=== PATIENT | male | born 1945 | race Caucasian/White ===

== ENCOUNTER 2020-09-27 00:02 | Inpatient (IN) ==
[2020-09-27] MEDS ORDERED: hydrALAZINE 20 MG/ML VIAL IV PRN ×3 (00:31→09:03)
--- NOTE | 2020-09-27 00:35 | Internal Med History&Physical ---
HPI History of Present Illness Patient information: Note initiated : 09/27/20 at 12:34 am Service Date, if different from initiated Date: [] Patient: Devin Barbour a 75 y/o M admitted on for AMS. Chief Complaint: [suspected bacterial/viral meningitis] History of present illness: Mr. Barbour is a 75 year old M history of subdural hemorrhage and meningitis, found by family to have altered mental status, confusions, and agitations earlier previous evening. He was found to be mumbling in incomprehensible words. He was just being brought to [facility] emergency room, where he was found to have a fever of 103. CT of the head without contrast was performed and no signs of acute stroke or any other acute intracranial pathologies were found. Labs including CBC were largely unremarkable with absence of leukocytosis. Urine drug screen negative. Given clinical presentations and prior history of meningitis, and recurrent episodes of bacterial versus viral meningitis were suspected. Lumbar puncture was attempted but failed due to the fact that patient was very combative. Ativan and Haldol were given and without much success. Patient finally was being calmed down after ketamine being given. Admission request due to staffing iss ues. Review of Systems ROS unobtainable: due to mental status PFSH PFSH All Active Problems (Updated 09/27/20 @ 00:41 by Rashad Min MD) Delirium (Acute) Meningitis (Acute) Acute bronchitis (Acute) Left shoulder pain (Acute) Subdural hematoma (Acute) Prediabetes (Chronic 05/11/14) Sleep apnea, obstructive (Chronic 05/11/14) Hypertension, essential (Chronic) Hyperlipidemia (Chronic 05/11/14) Tubular adenoma of colon (Chronic 05/14/15) Irregular heart rhythm (Chronic) Macular degeneration (Chronic) Medical History Hyperlipidemia (05/11/14) ldl, non hdl improved, on red yesat rice, continue to same. Hypertension, essential bp elevated today, low salt diet reinforced, reassess in 3 months Irregular heart rhythm asymptomatic, picked up by BP machine intermittently, get holter to r/o paroxysmal Afib. Macular degeneration Prediabetes (05/11/14) a1c is 5.8, doing well, continue to monitor annually Sleep apnea, obstructive (05/11/14) Tubular adenoma of colon (05/14/15) 05/14/2015-Jarad Vasovagal syncope Surgical History History of colonoscopy (05/14/15) 05/14/15- Dr Abraham-Parent - [place], TA History of knee surgery 1997 History of shoulder surgery 2006 Family History Father Dementia Mother Essential hypertension Unknown Carcinoma in situ of skin Grandfather Pulmonary tuberculosis Social History marital status: alcohol intake frequency: holiday/special occasion only substance use type: does not use MEDS/ALLERGIES Home Medications and Allergies Home Medications Medication Instructions Recorded Confirmed Type vitamins A,C,F-yegm-jionkz 14,320 cap PO 12/08/16 09/21/20 History unit-226 mg-200 unit capsule cholecalciferol (vitamin D3) 50 50 mcg PO QDAY 09/13/20 09/21/20 History mcg (2,000 unit) capsule rosuvastatin 10 mg tablet 10 mg PO QDAY 09/13/20 09/21/20 History vitamin B complex 1 tab PO QDAY 09/13/20 09/21/20 History Allergies Allergy/AdvReac Type Severity Reaction Status Date / Time meperidine [From Demerol] Allergy Unknown Fainting Verified 09/21/20 09:48 EXAM Constitutional General appearance: cooperative and no acute distress Head Head exam: Present atraumatic and normocephalic Eye Eye exam: Present EOMI and PERRL ENT ENT exam: Present mucous membranes moist, normal exam and normal external ear exam Neck Neck exam: Present normal inspection; Absent lymphadenopathy, tenderness and t hyromegaly Respiratory Respiratory exam: Absent accessory muscle use, respiratory distress and wheezes Cardiovascular Cardiovascular exam: Present normal rate and rhythm; Absent JVD GI/Abdominal GI/Abdominal exam: Present normal bowel sounds and soft; Absent organomegaly and tenderness Rectal Rectal exam: Present deferred Extremities Exam Extremities exam: Present full ROM, normal capillary refill and normal inspection; Absent tenderness Neurological Exam Neurological exam: Present alert and CN II-XII intact; Absent motor sensory deficit Additional comments: Orientation is not assessed due to clinical situations. Psychiatric Psychiatric exam: Present normal affect and normal mood; Absent anxious and depressed Skin Skin exam: Present dry and intact A/P Assessment and plan (1) Meningitis: Status: Acute (2) Delirium: Status: Acute Narrative A/P Narrative: 1. Delirium: DDx: Bacterial meningitis vs aseptic meningitis vs acute stroke Admit to inpatient PCU Serial lactic acid, ESR, CRP, procalcitonin Blood culture X2 Consider re-attempt Lumbar puncture when clinically appropriate, but do not delay antibiotics therapy Was being given Vancomycin, Rocephin, Dexamethasone, and acyclovir in outside hospital ER Will add a dose of Ampicillin IV NOW. Will continue empiric Vancomycin, Rocephin, Dexamethasone, and acyclovir in addition to Ampicillin cbc w/ auto diff in morning to trend WBC NS@100cc/hr Tylenol PRN fever Ativan PRN anxiety Haldol PRN agitation If Ativan and/or Haldol not enough to calm patient down, will initiate Precedex drip with goal RASS between 0 and -2 MRI brain w/o contrast in the morning to rule out acute ischemic stroke Physical therapy evaluation and treatment Occupational therapy evaluation and treatment GI ppx: not currently indicated DVT ppx: SCDs Code status: Full Prognosis: extremely guarded Disposition: inpatient PCU Critical Care Time: 45min Time Spent With Patient Time: Total time spent is greater than 50% in coordination of care (as documented) at patient's floor/unit and/or counseling patient: Total time spent with greater than 50% in coordination of care (as documented) at patient's floor/unit and/or counseling patient:: Greater than 35 minutes
[2020-09-27] MEDS ORDERED: ONDANSETRON 4 MG/2 ML VIAL IV PRN ×2 (02:02→09:03)
[2020-09-27] MEDS ORDERED: VANCOMYCIN PER PHARMACY IV ONE (02:02)
[2020-09-27] MEDS ORDERED: 0.9 % SODIUM CHLORIDE 1,000 ML IV SCH (02:02)
[2020-09-27] MEDS ORDERED: ACETAMINOPHEN 325 MG TABLET PO PRN ×2 (02:02→09:03)
[2020-09-27] MEDS ORDERED: DEXMEDETOMIDINE 400 MCG in PREMIX 1 BAG IV SCH ×2 (02:02→03:45)
[2020-09-27] MEDS ORDERED: cefTRIAXone 2 GM in DEXTROSE 5% IN WATER 50 ML IV SCH (02:02)
[2020-09-27] MEDS ORDERED: ACYCLOVIR SODIUM 500 MG VIAL IV SCH (02:02)
[2020-09-27] MEDS ORDERED: HALOPERIDOL LACTATE 5 MG/ML VIAL IM PRN ×3 (02:02→09:03)
[2020-09-27] MEDS ORDERED: LORazepam 2 MG/ML VIAL IV PRN ×2 (02:02→09:03)
[2020-09-27] MEDS ORDERED: LACTULOSE 20 GM/30 ML ORAL.SOL PO PRN ×2 (02:02→09:03)
[2020-09-27] MEDS ORDERED: SENNOSIDES 1 TABLET PO PRN ×2 (02:02→09:03)
[2020-09-27] MEDS ORDERED: DEXMEDETOMIDINE 100 ML IV ONE (02:06)
[2020-09-27] MEDS: AMPICILLIN SODIUM 1 GM in 0.9 % SODIUM CHLORIDE 50 ML IV SCH ×5 (03:06→20:43)
[2020-09-27] MEDS ORDERED: LORazepam 2 MG/ML VIAL ONE (03:11)
[2020-09-27] MEDS ORDERED: 0.9 % SODIUM CHLORIDE 250 ML IV SCH (03:30)
[2020-09-27] MEDS ORDERED: HALOPERIDOL LACTATE 5 MG/ML VIAL ONE (03:30)
[2020-09-27 03:31] LABS: ALT/SGPT 10 U/L (<40); AST/SGOT 21 U/L (<40); Albumin 3.4 gm/dL (3.2-5.2); Albumin/Globulin Ratio 1.3 (1.0-2.3); Alkaline Phosphatase 82 U/L (39-117); Bilirubin,Total 0.4 mg/dL (0.1-1.0); Blood Urea Nitrogen 17 mg/dL (8-23); Carbon Dioxide 22 mmol/L (22-30); Chloride 98 mmol/L (96-108); Globulin 2.7 gm/dL (2.2-3.7); Glomerular Filtration Rate 82; Glucose 139 mg/dL (70-105)
[2020-09-27 03:32] LABS: Basophils # (Auto) 0.02 K/mcL (0.00-0.20); Basophils % (Auto) 0.1 % (0.0-2.0); Eosinophils # (Auto) 0.01 K/mcL (0.00-0.70); Eosinophils % (Auto) 0.1 % (0.0-7.0); Hematocrit 37.4 % (41.0-55.0); Hemoglobin 12.4 g/dL (13.5-16.5); Lymphocytes # (Auto) 0.58 K/mcL (1.50-4.80); Lymphocytes % (Auto) 4.3 % (15.0-49.0); Mean Cell Volume 90.8 fL (80.0-100.0); Mean Corpuscular HGB Conc 33.2 g/dL (31.0-36.0); Mean Platelet Volume 8.9 fL (7.4-10.4); Monocytes # (Auto) 0.18 K/mcL (0.10-0.90); Monocytes % (Auto) 1.3 % (1.0-12.0); Neutrophils % (Auto) 94.2 % (38.0-78.0); Platelet Count 237 K/mcL (140-440); RBC 4.12 M/mcL (4.50-5.90); Red Cell Distribution Width 13.7 % (11.5-14.5); WBC 13.5 K/mcL (4.5-11.0)
[2020-09-27 04:59] LABS: Erythrocyte Sedimentation Rate 14 mm/hr (0-15)
[2020-09-27] MEDS ORDERED: 0.9 % SODIUM CHLORIDE 10 ML SYRINGE IV SCH (06:00)
[2020-09-27] MEDS ORDERED: ACYCLOVIR SODIUM IV SCH (06:00)
[2020-09-27] MEDS ORDERED: SODIUM CHLORIDE 0.9% IV SCH (06:00)
[2020-09-27] MEDS ORDERED: VANCOMYCIN PER PHARMACY IV SCH ×2 (06:15→09:03)
[2020-09-27] MEDS ORDERED: DOCUSATE SODIUM 100 MG CAPSULE PO SCH (09:00)
[2020-09-27] MEDS ORDERED: DEXAMETHASONE 10 MG/ML VIAL IV SCH (09:00)
[2020-09-27] MEDS: DOCUSATE SODIUM 100 MG CAPSULE PO SCH ×2 (09:09→20:39)
[2020-09-27] MEDS: DEXAMETHASONE 10 MG/ML VIAL IV SCH (09:17)
[2020-09-27] MEDS: 0.9 % SODIUM CHLORIDE 250 ML IV SCH ×2 (09:18→22:15)
[2020-09-27] MEDS: 0.9 % SODIUM CHLORIDE 1,000 ML IV SCH ×2 (10:28→20:35)
[2020-09-27] MEDS: DEXMEDETOMIDINE 400 MCG in PREMIX 1 BAG IV SCH (11:20)
--- NOTE | 2020-09-27 12:54 | Magnetic Resonance Report ---
CLINICAL INFORMATION: Acute weakness-possible CVA COMPARISON: head CT 09/27/2020 TECHNIQUE. Sagittal T1 FLAIR, axial T2 FLAIR diffusion ADC images were obtained FINDINGS: The ventricles, sulci, fissures and cisterns are symmetrically enlarged compatible with mild age-related atrophy-no extra-axial fluid collection or mass appreciated. Scattered chronic ischemic foci seen in the cerebral white matter-expected for age. No region of restricted diffusion to suggest acute infarct. No hemorrhage mass effect or edema. Signal void in the intracerebral arteries is normal. IMPRESSION: Mild atrophy and scattered chronic ischemic foci in deep cerebral white matter-expected for age. No evidence of acute CVA or other acute finding Interpreted and Authenticated by: Stuart Guerra 09/27/20
[2020-09-27] MEDS ORDERED: VANCOMYCIN 1,500 MG in 0.9 % SODIUM CHLORIDE 500 ML IV SCH (13:00)
[2020-09-27] MEDS ORDERED: LIDOCAINE 1% 20 ML VIAL SQ ONE (14:00)
[2020-09-27] MEDS: 0.9 % SODIUM CHLORIDE 10 ML SYRINGE IV SCH ×3 (14:06→20:40)
[2020-09-27] MEDS: ACYCLOVIR SODIUM IV SCH ×2 (14:32→21:55)
[2020-09-27] MEDS: SODIUM CHLORIDE 0.9% IV SCH ×2 (14:32→21:55)
--- NOTE | 2020-09-27 15:10 | XRay Report ---
CLINICAL INFORMATION: Obtundation. Evaluate for meningitis COMPARISON: None. TECHNIQUE: The procedure and risks including the possibility of bleeding, infection, CSF leak requiring blood patch were explained to the patient. They understood and wished to proceed. They were administered IV Ativan intravenously prior to and during the procedure while pulse oximetry and blood pressure were monitored by nursing. Please see medication sheet for dose. Total sedation time: 30 minutes Under fluoroscopic guidance, the L2-3 intralaminar space was marked, prepped and locally anesthetized with 1% Lidocaine using a 25 gauge needle. A 22 gauge spinal needle was placed under fluoroscopy through the intralaminar space into the thecal sac. Approximately 10 cc of sanguinous tinged CSF was aspirated and sent to pathology for requested studies. There was no apparent complication. The patient tolerated procedure well. Fluoroscopy time: one minute four seconds. IMPRESSION: Successful fluoroscopic guided lumbar puncture yielding 10 cc of sanguinous tinged CSF. No apparent complications. Interpreted and Authenticated by: Stuart Guerra 09/27/20
[2020-09-27] MEDS: cefTRIAXone 2 GM in DEXTROSE 5% IN WATER 50 ML IV SCH (16:13)
[2020-09-27 16:40] LABS: Appearance,CSF Cloudy; Lymphocytes,CSF 78 % (28-96); Monocytes,CSF 14 % (16-56); Neutrophils,CSF 8 % (0-7); Nucleated Cells,CSF 332 /cumm (0-5); Red Blood Cell,CSF 16729 /cumm (0-1); Total Cell Ct,CSF 100
[2020-09-27 17:16] LABS: Glucose,CSF 82 mg/dL (40-70)
[2020-09-28] MEDS: cefTRIAXone 2 GM in DEXTROSE 5% IN WATER 50 ML IV SCH ×3 (00:58→20:27)
[2020-09-28] MEDS: AMPICILLIN SODIUM 1 GM in 0.9 % SODIUM CHLORIDE 50 ML IV SCH ×3 (01:37→09:00)
[2020-09-28] MEDS: 0.9 % SODIUM CHLORIDE 10 ML SYRINGE IV SCH ×5 (05:15→21:54)
[2020-09-28] MEDS: ACYCLOVIR SODIUM IV SCH ×3 (06:02→21:45)
[2020-09-28] MEDS: SODIUM CHLORIDE 0.9% IV SCH ×3 (06:02→21:45)
[2020-09-28 07:37] LABS: ALT/SGPT 8 U/L (<40); AST/SGOT 17 U/L (<40); Albumin 2.4 gm/dL (3.2-5.2); Albumin/Globulin Ratio 1.1 (1.0-2.3); Alkaline Phosphatase 60 U/L (39-117); Bilirubin,Direct < 0.2 mg/dL (0-0.3); Bilirubin,Total < 0.2 mg/dL (0.1-1.0); Blood Urea Nitrogen 16 mg/dL (8-23); Calcium 7.2 mg/dL (8.6-10.4); Carbon Dioxide 25 mmol/L (22-30); Chloride 107 mmol/L (96-108); Globulin 2.2 gm/dL (2.2-3.7); Glomerular Filtration Rate 97; Glucose 125 mg/dL (70-105); Lactate Dehydrogenase 112 U/L (135-225); Phosphorous 2.4 mg/dL (2.5-4.5); Triglycerides 58 mg/dL (<150); Uric Acid 3.5 mg/dL (2.5-8.0)
[2020-09-28 07:38] LABS: ALT/SGPT 8 U/L (<40); AST/SGOT 17 U/L (<40); Albumin 2.4 gm/dL (3.2-5.2); Albumin/Globulin Ratio 1.1 (1.0-2.3); Alkaline Phosphatase 60 U/L (39-117); Bilirubin,Total < 0.2 mg/dL (0.1-1.0); Blood Urea Nitrogen 15 mg/dL (8-23); Calcium 7.3 mg/dL (8.6-10.4); Carbon Dioxide 24 mmol/L (22-30); Chloride 107 mmol/L (96-108); Globulin 2.2 gm/dL (2.2-3.7); Glomerular Filtration Rate 97; Glucose 123 mg/dL (70-105)
[2020-09-28] MEDS: DEXAMETHASONE 10 MG/ML VIAL IV SCH (08:15)
[2020-09-28] MEDS: DOCUSATE SODIUM 100 MG CAPSULE PO SCH ×2 (08:15→20:29)
[2020-09-28 08:19] LABS: Basophils # (Auto) 0.03 K/mcL (0.00-0.20); Basophils % (Auto) 0.4 % (0.0-2.0); Eosinophils # (Auto) 0.03 K/mcL (0.00-0.70); Eosinophils % (Auto) 0.4 % (0.0-7.0); Hematocrit 33.4 % (41.0-55.0); Lymphocytes # (Auto) 0.97 K/mcL (1.50-4.80); Lymphocytes % (Auto) 11.8 % (15.0-49.0); Mean Cell Volume 89.5 fL (80.0-100.0); Mean Corpuscular HGB Conc 32.9 g/dL (31.0-36.0); Monocytes # (Auto) 0.83 K/mcL (0.10-0.90); Monocytes % (Auto) 10.1 % (1.0-12.0); Neutrophils % (Auto) 77.3 % (38.0-78.0); Platelet Count 232 K/mcL (140-440); RBC 3.73 M/mcL (4.50-5.90); WBC 8.3 K/mcL (4.5-11.0)
[2020-09-28] MEDS ORDERED: DEXMEDETOMIDINE 400 MCG in PREMIX 1 BAG IV PRN (10:15)
[2020-09-28] MEDS: DEXMEDETOMIDINE 400 MCG in PREMIX 1 BAG IV SCH (10:16)
[2020-09-28] MEDS: 0.9 % SODIUM CHLORIDE 250 ML IV SCH (10:16)
--- NOTE | 2020-09-28 12:22 | Internal Med Progress Note ---
SUBJECTIVE Subjective Patient information: Note initiated : 09/28/20 at 12:18 pm Service Date, if different from initiated Date: [] Patient: Devin Barbour 75 y/o M admitted on 09/27/20 for AMS. Chief Complaint: [] Interval history: Mr. Barbour is a 75 year old M history of subdural hemorrhage and meningitis, found by family to have altered mental status, confusions, and agitations earlier previous evening. He was found to be mumbling in incompreh ensible words. He was just being brought to [facility] emergency room, where he was found to have a fever of 103. CT of the head without contrast was performed and no signs of acute stroke or any other acute intracranial pathologies were found. Labs including CBC were largely unremarkab le with absence of leukocytosis. Urine drug screen negative. Given clinical presentations and prior history of meningitis, and recurrent episodes of bacterial versus viral meningitis were suspected. Lumbar puncture was attempted but failed due to the fact that patient was very combative. Ativan and Haldol were given and without much success. Patient finally was being calmed down after ketamine being given. Admission request due to staffing issues. 09/28-patient clinically improved. Lumbar puncture consistent with mononuclear leukocytosis suggestive of aseptic meningitis. Continue acyclovir. DC ampicillin/vancomycin and steroid. Much more lucid alert and ambulating. Transfer to medical floor. Continue contact cautions. No overnight fever chills. Phosphorus 2.4 start replacement. Constitutional Vitals: Vital Signs Temp Pulse Resp BP Pulse Ox 97.5 F 74 17 137/69 99 09/28/20 08:01 09/27/20 15:16 09/28/20 08:01 09/28/20 08:01 09/28/20 08:01 Period Temp Pulse Resp BP Sys/Cassidy Pulse Ox Last 24 Hr 97.1 F-98.2 F 63-77 12-25 103-142/43-99 93-100 Intake and Output 09/27/20 09/28/20 09/28/20 21:59 05:59 13:59 Intake Total 2170 788 682 Output Total 825 600 250 Balance 1345 188 432 Weight 77.201 kg alert oriented Nonlabored breathing No anxiety Ambulating Intake & Output: Intake & Output 05/03/21 05/04/21 05/04/21 21:59 05:59 13:59 Intake Total 2170 788 682 Output Total 825 600 250 Balance 1345 188 432 Weight 77.201 kg Intake: IV 1930 788 682 Sodium Chloride 0.9% 1,000 ml @ 1080 488 432 100 mls/hr IV .Q10H DANIEL Rx#: [id number] Zovirax 770 mg In Sodium 150 150 150 Chloride 0.9% 150 ml @ 150 mls/ hr IV Q8H D[facility]EL Rx#:[id number] Ampicillin 1 gm In Sodium 150 100 50 Chloride 0.9% 50 ml @ 100 mls/ hr IV Q4H DANIEL Rx#:[id number] Precedex 400 Mcg/100 ml 0 Dextrose 400 Mcg In Premix 1 Bag @ 0.2 MCG/KG/HR 3.79 mls/hr IV .Q24H DANIEL Rx#:[id number] Vancomycin 1,500 mg In Sodium 500 Chloride 0.9% 500 ml @ 250 mls/ hr IV Q24H DANIEL Rx#:[id number] Rocephin 2 gm In Dextrose 5% in 50 50 50 Water 50 ml @ 100 mls/hr IV Q12H DANIEL Rx#:[id number] Oral 240 0 Output: Void Amount 825 600 250 Other: Meal Dinner Percent of Meal Consumed 100% Feeding Ability Independent Urine Appearance Clear Urine Color Dark Yellow Urine Odor Normal OBJ DATA Labs CBC & Chem 7: 09/28/20 05:05 09/28/20 05:05 Labs: Abnormal Lab Results 09/28/20 09/28/20 09/28/20 05:05 05:05 05:05 WBC RBC 3.73 L Hgb 11.0 L Hct 33.4 L Neut % (Auto) Lymph % (Auto) 11.8 L Lymph # (Auto) 0.97 L Absolute Neutrophils Anion Gap 6.0 L Creatinine 0.6 L 0.6 L Glucose 125 H 123 H Calcium 7.2 L 7.3 L Phosphorus 2.4 L Lactate Dehydrogenase 112 L Total Protein 4.6 L 4.6 L Albumin 2.4 L 2.4 L CSF RBC CSF Total Nucleated Auto CSF Neutrophils CSF Monocytes CSF Glucose CSF Total Protein 09/27/20 09/27/20 09/27/20 13:15 02:43 02:43 WBC 13.5 H RBC 4.12 L Hgb 12.4 L Hct 37.4 L Neut % (Auto) 94.2 H Lymph % (Auto) 4.3 L Lymph # (Auto) 0.58 L Absolute Neutrophils 12.70 H Anion Gap Creatinine Glucose 139 H Calcium 8.0 L Phosphorus Lactate Dehydrogenase Total Protein Albumin CSF RBC 69229 H CSF Total Nucleated Auto 332 H CSF Neutrophils 8 H CSF Monocytes 14 L CSF Glucose 82 H CSF Total Protein 69.0 H Meds: Medications Acetaminophen (Acetaminophen 325 Mg Tablet) 650 mg PO Q6HP PRN; Protocol PRN Reason: Per Pain Protocol/Fever > 101 Last Admin: 09/27/20 20:40 Dose: 650 mg Documented by: Dexamethasone (Dexamethasone 10 Mg/Ml Vial) 6 mg IV DAILY [facility] Last Admin: 09/28/20 08:15 Dose: 6 mg Documented by: Docusate Sodium (Docusate Sodium 100 Mg Capsule) 100 mg PO BID [facility] Last Admin: 09/28/20 08:15 Dose: 100 mg Documented by: Haloperidol Lactate (Haloperidol Lactate 5 Mg/Ml Vial) 5 mg IM Q6HP PRN PRN Reason: Agitation Hydralazine HCl (Hydralazine 20 Mg/Ml Vial) 10 mg IV Q4-6HP PRN PRN Reason: Hypertension Sodium Chloride (Sodium Chloride 0.9%) 1,000 mls @ 100 mls/hr IV .Q10H [facility] Last Infusion: 09/28/20 10:58 Dose: Infused Documented by: Acyclovir Sodium 770 mg/ (Sodium Chloride) 150 mls @ 150 mls/hr IV Q8H [facility] Last Infusion: 09/28/20 07:03 Dose: Infused Documented by: Ampicillin Sodium 1 gm/ Sodium (Chloride) 50 mls @ 100 mls/hr IV Q4H [facility]; Protocol Last Infusion: 09/28/20 09:48 Dose: Infused Documented by: Ceftriaxone Sodium 2 gm/ (Dextrose) 50 mls @ 100 mls/hr IV Q12H [facility]; Protocol Last Infusion: 09/28/20 10:15 Dose: Infused Documented by: Vancomycin HCl 1,500 mg/ (Sodium Chloride) 500 mls @ 250 mls/hr IV Q24H [facility] Stop: 09/28/20 12:30 Last Infusion: 09/27/20 16:42 Dose: Infused Documented by: Vancomycin HCl 1,500 mg/ (Sodium Chloride) 500 mls @ 250 mls/hr IV Q12H [facility] Last Admin: 09/28/20 10:09 Dose: 250 mls/hr Documented by: Dexmedetomidine HCl 400 mcg/ (Premix) 100 mls @ 3.79 mls/hr IV .Q24H PRN; Protocol PRN Reason: Sedation Lactulose (Lactulose 20 Gm/30 Ml Oral.Tanja) 10 gm PO DAILYP PRN PRN Reason: Constipation Lorazepam (Lorazepam 2 Mg/Ml Vial) 1 mg IV Q2HP PRN PRN Reason: ANXIETY/SEDATION Last Admin: 09/27/20 12:20 Dose: 1 mg Documented by: Ondansetron HCl (Ondansetron 4 Mg/2 Ml Vial) 4 mg IV Q4HP PRN; Protocol PRN Reason: Nausea And Vomiting Senna (Sennosides 1 Tablet) 2 tab PO HSP PRN PRN Reason: Constipation Sodium Chloride (0.9 % Sodium Chloride 10 Ml Syringe) 10 ml IV Q8 [facility] Last Admin: 09/28/20 05:20 Dose: 10 ml Documented by: Vancomycin HCl (Vancomycin Per Pharmacy) 1 order IV [facility] [place]; Protocol A/P Narrative A/P Narrative: * Aseptic meningitis, HSV cultures pending. Continue with acyclovir, de- escalate antibiotics as procalcitonin 0.06 and no evidence of bacterial infection, negative cultures so far * History of HLD continue statin * Prophylaxis SCDs Plan * Transfer to medical floor * De-escalate antibiotics * PT OT nutrition support * Discharge planning Time Spent With Patient Time: Total time spent is greater than 50% in coordination of care (as documented) at patient's floor/unit and/or counseling patient: QUALITY Stroke Symptom Onset Unknown: No VTE Deep Vein Thrombosis/Pulmonary Embolism Present on Admission: No
[2020-09-28] MEDS: 0.9 % SODIUM CHLORIDE 1,000 ML IV SCH ×2 (12:36→14:19)
[2020-09-28] MEDS ORDERED: LACTULOSE 20 GM/30 ML ORAL.SOL PO PRN (12:41)
[2020-09-28] MEDS ORDERED: LIDOCAINE 1% 20 ML VIAL SQ ONE (12:41)
[2020-09-28] MEDS ORDERED: LORazepam 2 MG/ML VIAL IV PRN (12:41)
[2020-09-28] MEDS ORDERED: SENNOSIDES 1 TABLET PO PRN (12:41)
[2020-09-28] MEDS ORDERED: ONDANSETRON 4 MG/2 ML VIAL IV PRN (12:41)
[2020-09-28] MEDS ORDERED: HALOPERIDOL LACTATE 5 MG/ML VIAL IM PRN (12:41)
[2020-09-28] MEDS ORDERED: hydrALAZINE 20 MG/ML VIAL IV PRN (12:41)
[2020-09-28] MEDS ORDERED: NEUTRA PHOS 1 PACKET PO PRN (12:41)
[2020-09-28] MEDS: ACETAMINOPHEN 325 MG TABLET PO PRN (19:44)
[2020-09-28] MEDS: ATORVASTATIN 10 MG TABLET PO SCH (20:29)
[2020-09-28] MEDS: VITAMINS A C E ZINC COPPER PO SCH (20:34)
[2020-09-28] MEDS ORDERED: VANCOMYCIN 1,500 MG in 0.9 % SODIUM CHLORIDE 500 ML IV SCH (22:00)
[2020-09-29] MEDS: ACETAMINOPHEN 325 MG TABLET PO PRN ×2 (03:03→17:23)
[2020-09-29] MEDS: 0.9 % SODIUM CHLORIDE 1,000 ML IV SCH ×3 (03:05→19:32)
[2020-09-29] MEDS: SODIUM CHLORIDE 0.9% IV SCH ×3 (05:31→23:03)
[2020-09-29] MEDS: ACYCLOVIR SODIUM IV SCH ×3 (05:31→23:03)
[2020-09-29] MEDS: 0.9 % SODIUM CHLORIDE 10 ML SYRINGE IV SCH ×3 (05:45→23:03)
--- NOTE | 2020-09-29 09:02 | XRay Report ---
CLINICAL INFORMATION: Bronchitis vs Pneumonia COMPARISON: 11/27/2017 FINDINGS: The heart size, mediastinum and pulmonary vessels are normal. Minor bibasilar airspace disease is more likely atelectasis than developing infiltrate. No effusion. IMPRESSION: Mild bibasilar airspace disease is more likely atelectasis than developing infiltrate. Suggest two-view follow-up one two days Interpreted and Authenticated by: Stuart Guerra 09/29/20
[2020-09-29 10:09] LABS: ALT/SGPT 11 U/L (<40); AST/SGOT 22 U/L (<40); Albumin/Globulin Ratio 1.3 (1.0-2.3); Alkaline Phosphatase 69 U/L (39-117); Bilirubin,Direct < 0.2 mg/dL (0-0.3); Bilirubin,Total 0.3 mg/dL (0.1-1.0); Blood Urea Nitrogen 10 mg/dL (8-23); Carbon Dioxide 27 mmol/L (22-30); Chloride 102 mmol/L (96-108); Globulin 2.4 gm/dL (2.2-3.7); Glomerular Filtration Rate 86; Glucose 133 mg/dL (70-105); Lactate Dehydrogenase 126 U/L (135-225); Phosphorous 2.5 mg/dL (2.5-4.5); Triglycerides 120 mg/dL (<150)
[2020-09-29] MEDS: cefTRIAXone 2 GM in DEXTROSE 5% IN WATER 50 ML IV SCH ×2 (10:14→21:50)
[2020-09-29] MEDS: DOCUSATE SODIUM 100 MG CAPSULE PO SCH ×2 (10:15→21:58)
[2020-09-29] MEDS: VITAMINS A C E ZINC COPPER PO SCH ×2 (10:15→21:58)
--- NOTE | 2020-09-29 12:54 | Internal Med Progress Note ---
SUBJECTIVE Subjective Patient information: Note initiated : 09/29/20 at 12:48 pm Service Date, if different from initiated Date: [] Patient: Devin Barbour 75 y/o M admitted on 09/27/20 for AMS. Chief Complaint: [] Interval history: Mr. Barbour is a 75 year old M history of subdural hemorrhage and meningitis, found by family to have altered mental status, confusions, and agitations earlier previous evening. He was found to be mumbling in incompreh ensible words. He was just being brought to [facility] emergency room, where he was found to have a fever of 103. CT of the head without contrast was performed and no signs of acute stroke or any other acute intracranial pathologies were found. Labs including CBC were largely unremarkab le with absence of leukocytosis. Urine drug screen negative. Given clinical presentations and prior history of meningitis, and recurrent episodes of bacterial versus viral meningitis were suspected. Lumbar puncture was attempted but failed due to the fact that patient was very combative. Ativan and Haldol were given and without much success. Patient finally was being calmed down after ketamine being given. Admission request due to staffing issues. 09/28-patient clinically improved. Lumbar puncture consistent with mononuclear leukocytosis suggestive of aseptic meningitis. Continue acyclovir. DC ampicillin/vancomycin and steroid. Much more lucid alert and ambulating. Transfer to medical floor. Continue contact cautions. No overnight fever chills. Phosphorus 2.4 start replacement. 09/29-patient febrile last night. Intermittently confused but this morning a lot better. Await CSF test including encephalitis panel. Stable biochemical profile. Continue acyclovir. Constitutional Vitals: Vital Signs Temp Pulse Resp BP Pulse Ox 98.2 F 74 20 129/70 95 09/29/20 07:00 09/29/20 07:00 09/29/20 07:00 09/29/20 07:00 09/29/20 07:00 Period Temp Pulse Resp BP Sys/Cassidy Pulse Ox Last 24 Hr 96.7 F-101.2 F 73-81 18-20 129-167/62-89 95-100 Intake and Output 09/28/20 09/29/20 09/29/20 21:59 05:59 13:59 Intake Total 943 952 390 Output Total 50 Balance 943 902 390 Weight 78.97 kg Alert oriented, ambulating Non labored breathing No anxiety Intake & Output: Intake & Output 09/28/20 09/29/20 09/29/20 21:59 05:59 13:59 Intake Total 943 952 390 Output Total 50 Balance 943 902 390 Weight 78.97 kg Intake: IV 943 652 150 Sodium Chloride 0.9% 1,000 ml @ 743 502 0 100 mls/hr IV .Q10H [facility] Rx#: [id number] Zovirax 770 mg In Sodium 150 150 150 Chloride 0.9% 150 ml @ 150 mls/ hr IV Q8H [facility] Rx#:[id number] Rocephin 2 gm In Dextrose 5% in 50 Water 50 ml @ 100 mls/hr IV Q12H [facility] Rx#:[id number] Oral 300 240 Output: Void Amount 50 Other: Meal Breakfast Percent of Meal Consumed 100% Feeding Ability Independent Urine Appearance Clear Clear Urine Color Bright Yellow Bright Yellow Stool Size Moderate Moderate Stool Color Brown Brown Stool Consistency Formed Soft # Voids 1 1 2 # Bowel Movements 1 OBJ DATA Labs CBC & Chem 7: 09/29/20 13:30 09/29/20 09:13 Labs: Abnormal Lab Results 09/29/20 09/28/20 09/28/20 09:13 05:05 05:05 WBC RBC Hgb Hct Neut % (Auto) Lymph % (Auto) Lymph # (Auto) Absolute Neutrophils Anion Gap 6.0 L Creatinine 0.6 L 0.6 L Glucose 133 H 125 H 123 H Calcium 8.0 L 7.2 L 7.3 L Phosphorus 2.4 L Lactate Dehydrogenase 126 L 112 L Total Protein 5.4 L 4.6 L 4.6 L Albumin 3.0 L 2.4 L 2.4 L CSF RBC CSF Total Nucleated Auto CSF Neutrophils CSF Monocytes CSF Glucose CSF Total Protein 09/28/20 09/27/20 09/27/20 05:05 13:15 02:43 WBC RBC 3.73 L Hgb 11.0 L Hct 33.4 L Neut % (Auto) Lymph % (Auto) 11.8 L Lymph # (Auto) 0.97 L Absolute Neutrophils Anion Gap Creatinine Glucose 139 H Calcium 8.0 L Phosphorus Lactate Dehydrogenase Total Protein Albumin CSF RBC 31329 H CSF Total Nucleated Auto 332 H CSF Neutrophils 8 H CSF Monocytes 14 L CSF Glucose 82 H CSF Total Protein 69.0 H 09/27/20 02:43 WBC 13.5 H RBC 4.12 L Hgb 12.4 L Hct 37.4 L Neut % (Auto) 94.2 H Lymph % (Auto) 4.3 L Lymph # (Auto) 0.58 L Absolute Neutrophils 12.70 H Anion Gap Creatinine Glucose Calcium Phosphorus Lactate Dehydrogenase Total Protein Albumin CSF RBC CSF Total Nucleated Auto CSF Neutrophils CSF Monocytes CSF Glucose CSF Total Protein Meds: Medications Acetaminophen (Acetaminophen 325 Mg Tablet) 650 mg PO Q6HP PRN; Protocol PRN Reason: Per Pain Protocol/Fever > 101 Last Admin: 09/29/20 03:03 Dose: 650 mg Documented by: Atorvastatin Calcium (Atorvastatin 10 Mg Tablet) 10 mg PO HS [facility] Last Admin: 09/28/20 20:29 Dose: 10 mg Documented by: Docusate Sodium (Docusate Sodium 100 Mg Capsule) 100 mg PO BID [facility] Last Admin: 09/29/20 10:15 Dose: Not Given Documented by: Haloperidol Lactate (Haloperidol Lactate 5 Mg/Ml Vial) 5 mg IM Q6HP PRN PRN Reason: Agitation Hydralazine HCl (Hydralazine 20 Mg/Ml Vial) 10 mg IV Q4-6HP PRN PRN Reason: Hypertension Acyclovir Sodium 770 mg/ (Sodium Chloride) 150 mls @ 150 mls/hr IV Q8H [facility] Last Infusion: 09/29/20 06:35 Dose: Infused Documented by: Ceftriaxone Sodium 2 gm/ (Dextrose) 50 mls @ 100 mls/hr IV Q12H [facility]; Protocol Last Admin: 09/29/20 10:14 Dose: 100 mls/hr Documented by: Sodium Chloride (Sodium Chloride 0.9%) 1,000 mls @ 100 mls/hr IV .Q10H [facility] Last Infusion: 09/29/20 06:35 Dose: 100 mls/hr Documented by: Lactulose (Lactulose 20 Gm/30 Ml Oral.Tanja) 10 gm PO DAILYP PRN PRN Reason: Constipation Lorazepam (Lorazepam 2 Mg/Ml Vial) 1 mg IV Q2HP PRN PRN Reason: ANXIETY/SEDATION Ondansetron HCl (Ondansetron 4 Mg/2 Ml Vial) 4 mg IV Q4HP PRN; Protocol PRN Reason: Nausea And Vomiting Vitamins A,C,E-Zinc -Copper [ Preservision Areds] Cap 1 dose PO BID [facility] Last Admin: 09/29/20 10:15 Dose: Not Given Documented by: Potassium/Phosphorus/Sodium (Neutra Phos 1 Packet) 2 packet PO DAILY PRN PRN Reason: PHOS <2.5 Senna (Sennosides 1 Tablet) 2 tab PO HSP PRN PRN Reason: Constipation Sodium Chloride (0.9 % Sodium Chloride 10 Ml Syringe) 10 ml IV Q8 [facility] Last Admin: 09/29/20 05:45 Dose: 10 ml Documented by: A/P Narrative A/P Narrative: * Aseptic meningitis with 92% mononuclear cells on CSF, increased protein, HSV cultures pending. continue acyclovir/Rocephin * History of HLD continue statin * Prophylaxis SCDs Plan * Transfer to medical floor * Further de-escalate antibiotics based on CSF cultures * Continue acyclovir * PT OT nutrition support * Discharge planning Time Spent With Patient Time: Total time spent is greater than 50% in coordination of care (as documented) at patient's floor/unit and/or counseling patient: QUALITY Stroke Symptom Onset Unknown: No VTE Deep Vein Thrombosis/Pulmonary Embolism Present on Admission: No
[2020-09-29 14:08] LABS: Basophils # (Auto) 0.02 K/mcL (0.00-0.20); Basophils % (Auto) 0.3 % (0.0-2.0); Eosinophils # (Auto) 0.03 K/mcL (0.00-0.70); Eosinophils % (Auto) 0.4 % (0.0-7.0); Hemoglobin 11.9 g/dL (13.5-16.5); Lymphocytes # (Auto) 1.36 K/mcL (1.50-4.80); Lymphocytes % (Auto) 18.2 % (15.0-49.0); Mean Cell Volume 95.1 fL (80.0-100.0); Mean Corpuscular HGB Conc 36.1 g/dL (31.0-36.0); Monocytes # (Auto) 0.66 K/mcL (0.10-0.90); Monocytes % (Auto) 8.8 % (1.0-12.0); Neutrophils % (Auto) 72.3 % (38.0-78.0); Platelet Count 213 K/mcL (140-440); RBC 3.47 M/mcL (4.50-5.90); Red Cell Distribution Width 16.9 % (11.5-14.5); WBC 7.5 K/mcL (4.5-11.0)
[2020-09-29] MEDS: ATORVASTATIN 10 MG TABLET PO SCH (21:51)
[2020-09-30] MEDS: 0.9 % SODIUM CHLORIDE 1,000 ML IV SCH ×2 (04:20→17:58)
[2020-09-30] MEDS: ACYCLOVIR SODIUM IV SCH ×3 (05:54→21:32)
[2020-09-30] MEDS: SODIUM CHLORIDE 0.9% IV SCH ×3 (05:54→21:32)
[2020-09-30] MEDS: 0.9 % SODIUM CHLORIDE 10 ML SYRINGE IV SCH ×3 (05:55→21:33)
[2020-09-30 08:17] LABS: Basophils # (Auto) 0.04 K/mcL (0.00-0.20); Basophils % (Auto) 0.5 % (0.0-2.0); Eosinophils # (Auto) 0.06 K/mcL (0.00-0.70); Eosinophils % (Auto) 0.8 % (0.0-7.0); Hematocrit 35.8 % (41.0-55.0); Hemoglobin 11.8 g/dL (13.5-16.5); Lymphocytes # (Auto) 0.91 K/mcL (1.50-4.80); Lymphocytes % (Auto) 12.4 % (15.0-49.0); Mean Cell Volume 89.7 fL (80.0-100.0); Mean Platelet Volume 9.3 fL (7.4-10.4); Monocytes # (Auto) 0.67 K/mcL (0.10-0.90); Monocytes % (Auto) 9.1 % (1.0-12.0); Neutrophils % (Auto) 77.2 % (38.0-78.0); Platelet Count 222 K/mcL (140-440); RBC 3.99 M/mcL (4.50-5.90); Red Cell Distribution Width 14.2 % (11.5-14.5); WBC 7.3 K/mcL (4.5-11.0)
[2020-09-30] MEDS: cefTRIAXone 2 GM in DEXTROSE 5% IN WATER 50 ML IV SCH (08:29)
[2020-09-30] MEDS: DOCUSATE SODIUM 100 MG CAPSULE PO SCH ×2 (08:29→20:29)
[2020-09-30] MEDS: VITAMINS A C E ZINC COPPER PO SCH ×2 (08:29→20:30)
[2020-09-30 09:41] LABS: ALT/SGPT 11 U/L (<40); AST/SGOT 24 U/L (<40); Albumin 2.8 gm/dL (3.2-5.2); Albumin/Globulin Ratio 1.1 (1.0-2.3); Alkaline Phosphatase 70 U/L (39-117); Bilirubin,Direct < 0.2 mg/dL (0-0.3); Bilirubin,Total 0.4 mg/dL (0.1-1.0); Blood Urea Nitrogen 8 mg/dL (8-23); Calcium 8.1 mg/dL (8.6-10.4); Carbon Dioxide 25 mmol/L (22-30); Chloride 100 mmol/L (96-108); Globulin 2.5 gm/dL (2.2-3.7); Glomerular Filtration Rate 91; Glucose 95 mg/dL (70-105); Lactate Dehydrogenase 202 U/L (135-225); Phosphorous 2.7 mg/dL (2.5-4.5); Triglycerides 89 mg/dL (<150); Uric Acid 2.7 mg/dL (2.5-8.0)
--- NOTE | 2020-09-30 13:18 | Internal Med Progress Note ---
SUBJECTIVE Subjective Patient information: Note initiated : 09/30/20 at 1:16 pm Service Date, if different from initiated Date: [] Patient: Devin Barbour 75 y/o M admitted on 09/27/20 for AMS. Chief Complaint: [] Interval history: Mr. Barbour is a 75 year old M history of subdural hemorrhage and meningitis, found by family to have altered mental status, confusions, and agitations earlier previous evening. He was found to be mumbling in incomprehe nsible words. He was just being brought to [facility] emergency room, where he was found to have a fever of 103. CT of the head without contrast was performed and no signs of acute stroke or any other acute intracranial pathologies were found. Labs including CBC were largely unremarkable with absence of leukocytosis. Urine drug screen negative. Given clinical presentations and prior history of meningitis, and recurrent episodes of bacterial versus viral meningitis were suspected. Lumbar puncture was attempted but failed due to the fact that patient was very combative. Ativan and Haldol were given and without much success. Patient finally was being calmed down after ketamine being given. Admission request due to staffing issues. 09/28-patient clinically improved. Lumbar puncture consistent with mononuclear leukocytosis suggestive of aseptic meningitis. Continue acyclovir. DC ampicillin/vancomycin and steroid. Much more lucid alert and ambulating. Transfer to medical floor. Continue contact cautions. No overnight fever chills. Phosphorus 2.4 start replacement. 09/29-patient febrile last night. Intermittently confused but this morning a lot better. Await CSF test including encephalitis panel. Stable biochemical profile. Continue acyclovir. -09/30 patient doing a lot better. Lucid alert and ambulating. Encephalitis panel pending. Continue acyclovir. DC Rocephin as no fever or signs of bacterial meningitis. Low procalcitonin. Stable white count, renal function stable creatinine 0.7, no overnight fever chills or concerns per staff. Tolerating diet and therapies Constitutional Vitals: Vital Signs Temp Pulse Resp BP Pulse Ox 99.1 F H 65 18 152/64 98 09/30/20 11:58 09/30/20 11:58 09/30/20 11:58 09/30/20 11:58 09/30/20 11:58 Period Temp Pulse Resp BP Sys/Cassidy Pulse Ox Last 24 Hr 98.7 F-101.3 F 63-78 16-18 119-160/61-70 96-98 Intake and Output 09/29/20 09/30/20 09/30/20 21:59 05:59 13:59 Intake Total 942 1320 150 Output Total 750 1100 1050 Balance 192 220 -900 Weight 79.379 kg alert oriented Nonlabored breathing Ambulating Nondistended abdomen Intake & Output: Intake & Output 09/29/20 09/30/20 09/30/20 21:59 05:59 13:59 Intake Total 942 1320 150 Output Total 750 1100 1050 Balance 192 220 -900 Weight 79.379 kg Intake: IV 942 1200 150 Sodium Chloride 0.9% 1,000 ml @ 742 1000 100 mls/hr IV .Q10H DANIEL Rx#: [id number] Zovirax 770 mg In Sodium 150 150 150 Chloride 0.9% 150 ml @ 150 mls/ hr IV Q8H DANIEL Rx#:[id number] Rocephin 2 gm In Dextrose 5% in 50 50 Water 50 ml @ 100 mls/hr IV Q12H DANIEL Rx#:[id number] Oral 120 Output: Void Amount 750 1100 1050 Other: Urine Appearance Clear Clear Urine Color Pale Pale Urine Odor Normal # Voids 1 OBJ DATA Labs CBC & Chem 7: 09/30/20 05:27 09/30/20 05:27 Labs: Abnormal Lab Results 09/30/20 09/30/20 09/29/20 05:27 05:27 13:30 RBC 3.99 L 3.47 L Hgb 11.8 L 11.9 L Hct 35.8 L 33.0 L MCH 34.3 H MCHC 36.1 H RDW 16.9 H Lymph % (Auto) 12.4 L Lymph # (Auto) 0.91 L 1.36 L Anion Gap Creatinine Glucose Calcium 8.1 L Phosphorus Lactate Dehydrogenase Total Protein 5.3 L Albumin 2.8 L CSF RBC CSF Total Nucleated Auto CSF Neutrophils CSF Monocytes CSF Glucose CSF Total Protein 09/29/20 09/28/20 09/28/20 09:13 05:05 05:05 RBC Hgb Hct MCH MCHC RDW Lymph % (Auto) Lymph # (Auto) Anion Gap 6.0 L Creatinine 0.6 L 0.6 L Glucose 133 H 125 H 123 H Calcium 8.0 L 7.2 L 7.3 L Phosphorus 2.4 L Lactate Dehydrogenase 126 L 112 L Total Protein 5.4 L 4.6 L 4.6 L Albumin 3.0 L 2.4 L 2.4 L CSF RBC CSF Total Nucleated Auto CSF Neutrophils CSF Monocytes CSF Glucose CSF Total Protein 09/28/20 09/27/20 05:05 13:15 RBC 3.73 L Hgb 11.0 L Hct 33.4 L MCH MCHC RDW Lymph % (Auto) 11.8 L Lymph # (Auto) 0.97 L Anion Gap Creatinine Glucose Calcium Phosphorus Lactate Dehydrogenase Total Protein [place] 25201 H CSF Total Nucleated Auto 332 H CSF Neutrophils 8 H CSF Monocytes 14 L CSF Glucose 82 H CSF Total Protein 69.0 H Meds: Medications Acetaminophen (Acetaminophen 325 Mg Tablet) 650 mg PO Q6HP PRN; Protocol PRN Reason: Per Pain Protocol/Fever > 101 Last Admin: 09/29/20 17:23 Dose: 650 mg Documented by: Atorvastatin Calcium (Atorvastatin 10 Mg Tablet) 10 mg PO HS [facility] Last Admin: 09/29/20 21:51 Dose: 10 mg Documented by: Docusate Sodium (Docusate Sodium 100 Mg Capsule) 100 mg PO BID [facility] Last Admin: 09/30/20 08:29 Dose: 100 mg Documented by: Haloperidol Lactate (Haloperidol Lactate 5 Mg/Ml Vial) 5 mg IM Q6HP PRN PRN Reason: Agitation Hydralazine HCl (Hydralazine 20 Mg/Ml Vial) 10 mg IV Q4-6HP PRN PRN Reason: Hypertension Acyclovir Sodium 770 mg/ (Sodium Chloride) 150 mls @ 150 mls/hr IV Q8H [facility] Last Infusion: 09/30/20 08:00 Dose: Infused Documented by: Sodium Chloride (Sodium Chloride 0.9%) 1,000 mls @ 100 mls/hr IV .Q10H [facility] Last Admin: 09/30/20 04:20 Dose: 100 mls/hr Documented by: Lactulose (Lactulose 20 Gm/30 Ml Oral.Tanja) 10 gm PO DAILYP PRN PRN Reason: Constipation Lorazepam (Lorazepam 2 Mg/Ml Vial) 1 mg IV Q2HP PRN PRN Reason: ANXIETY/SEDATION Ondansetron HCl (Ondansetron 4 Mg/2 Ml Vial) 4 mg IV Q4HP PRN; Protocol PRN Reason: Nausea And Vomiting Vitamins A,C,E-Zinc -Copper [ Preservision Areds] Cap 1 dose PO BID [facility] Last Admin: 09/30/20 08:29 Dose: Not Given Documented by: Potassium/Phosphorus/Sodium (Neutra Phos 1 Packet) 2 packet PO DAILY PRN PRN Reason: PHOS <2.5 Senna (Sennosides 1 Tablet) 2 tab PO HSP PRN PRN Reason: Constipation Sodium Chloride (0.9 % Sodium Chloride 10 Ml Syringe) 10 ml IV Q8 [facility] Last Admin: 09/30/20 05:55 Dose: 10 ml Documented by: A/P Narrative A/P Narrative: * Aseptic meningitis with 92% mononuclear cells on CSF, increased protein, continuing acyclovir. Viral panel including HSV cultures pending. Discontinue Rocephin as no evidence of bacterial infection. * History of HLD continue statin * Prophylaxis SCDs Plan * DC Rocephin * Continue acyclovir * PT OT nutrition support * Discharge planning Time Spent With Patient Time: Total time spent is greater than 50% in coordination of care (as documented) at patient's floor/unit and/or counseling patient: QUALITY Stroke Symptom Onset Unknown: No VTE Deep Vein Thrombosis/Pulmonary Embolism Present on Admission: No
--- NOTE | 2020-09-30 18:37 | Infectious Disease Consult ---
HPI Data of Consult Primary Care Provider: Bert Chairez Consult Narrative Patient Information: Note initiated : 09/30/20 at 6:22 pm Service Date, if different from initiated Date: [] Patient: Devin Barbour 75 y/o M admitted on 09/27/20 for AMS. Chief Complaint: [] Devin is a 75-year-old man admitted on September 27 for fever and altered mental status. He had a temperature of [address] Sr asked for consultation to assist with management. He is currently day 4 of IV acyclovir. Working diagnosis is viral meningitis. Lumbar puncture was completed no organisms seen and no growth. Blood cultures September 27 in September 29 are negative. Cell count from the lumbar puncture revealed 16,729 red cells with 332 white blood cells. 8% segs 78% lymphs 14% monos. He denies headache prior to admission. He currently denies headache. He had 4 days of symptoms of cough and rhinorrhea prior to admission. His became ill after he did. He reports that she is currently being treated for pneumonia by her primary care provider. Admit white count was 13.5 with 94% segs and 4% lymphs. White blood cell count today 7.3. A brain MRI was completed September 27 with no acute changes. He was on broad-spectrum antibiotic therapy earlier in the hospital course but he has been deescalated to acyclovir. He reports a history of viral meningitis hospitalized at [facility] April 2014. He is describing IV treatment after he left the hospital. It seems that he was treated with 2 weeks of IV acyclovir. He is not familiar with the term herpes meningitis. I am attempting to get the records of discharge summary from [facility]. He is continued to have fever with temp of 100.5 on September 28 1-1.3 on September 29 and 99.8 today. He also describes a traumatic fall from a tree September 2019 with subdural hematoma that required cassidy hole evacuation his current symptoms include weakness but he is ambulatory. He feels nearly back to normal. He enjoys golfing and swimming [place] the aquatic center. He has 3 dogs. cc:: CC: Rashad Min MD Review of Systems Review of systems: General: Fevers beginning September 27. No headache. He does report macular degeneration. No sore throat. No history of fever blisters. He does recall may be some cold sores as a child. No neck stiffness. No complaints of swollen lymph nodes. Pulmonary: No current shortness of breath. He does report cough. Cardiac: No chest pain. GI: No abdominal pain or diarrhea. no dysuria. Extremities no complaints of edema or rash. PFSH PFSH All Active Problems (Updated 09/30/20 @ 18:37 by Favian Logan MD) Delirium (Acute) Meningitis (Acute) Acute bronchitis (Acute) Left shoulder pain (Acute) Subdural hematoma (Acute) Prediabetes (Chronic 05/11/14) Sleep apnea, obstructive (Chronic 05/11/14) Hypertension, essential (Chronic) Hyperlipidemia (Chronic 05/11/14) Tubular adenoma of colon (Chronic 05/14/15) Irregular heart rhythm (Chronic) Macular degeneration (Chronic) Medical History Hyperlipidemia (05/11/14) ldl, non hdl improved, on red yesat rice, continue to same. Hypertension, essential bp elevated today, low salt diet reinforced, reassess in 3 months Irregular heart rhythm asymptomatic, picked up by BP machine intermittently, get holter to r/o paroxysmal Afib. Macular degeneration Prediabetes (05/11/14) a1c is 5.8, doing well, continue to monitor annually Sleep apnea, obstructive (05/11/14) Tubular adenoma of colon (05/14/15) 05/14/2015-Jarad Vasovagal syncope Surgical History History of colonoscopy (05/14/15) 05/14/15- Dr Abraham-.Parent - HP, TA History of knee surgery 1997 History of shoulder surgery 2006 Family History Father Dementia Mother Essential hypertension Unknown Carcinoma in situ of skin Grandfather Pulmonary tuberculosis Social History marital status: alcohol intake frequency: holiday/special occasion only substance use type: does not use MEDS/ALLERGIES Home Medications and Allergies Home Medications Medication Instructions Recorded Confirmed Type rosuvastatin 5 mg PO DAILY 09/27/20 09/27/20 History cholecalciferol (vitamin D3) 50 mcg PO QDAY 09/28/20 09/28/20 History vitamin B complex [B 1 tab PO DAILY 09/28/20 09/28/20 History Complex-Vitamin B12] vitamins A,C,E-cslm-ajafup 1 cap PO BID 09/28/20 09/28/20 History [PreserVision AREDS] Allergies Allergy/AdvReac Type Severity Reaction Status Date / Time meperidine [From Demerol] AdvReac Mild Fainting Verified 09/28/20 07:01 Physical Examination Vital Signs Vital signs: Temperature curve reviewed. Temp Pulse Resp BP Pulse Ox 99.8 F H 65 18 143/69 96 09/30/20 16:41 09/30/20 16:41 09/30/20 16:41 09/30/20 16:41 09/30/20 16:41 Additional Exam Additional exam: General: No acute distress. Appropriately answering questions. He does not appear to be confused. HEENT: EOMI PERRL sclera anicteric. Neck is supple he is able to flex chin to chest. No masses. Lungs are clear bilaterally. Heart: Regular rate and rhythm without murmur. Abdomen soft nontender positive bowel sounds. Extremities: Without edema or rash. Neurologic: Awake alert oriented. Cranial nerves II through XII grossly intact. He moves all 4 extremities appropriately. He is ambulatory to the bathroom. Results Laboratory Findings CBC and BMP: 09/30/20 05:27 09/30/20 05:27 Abnormal lab findings: Abnormal Labs 09/27/20 09/27/20 09/27/20 02:43 02:43 13:15 WBC 13.5 H RBC 4.12 L Hgb 12.4 L Hct 37.4 L MCH MCHC RDW Neut % (Auto) 94.2 H Lymph % (Auto) 4.3 L Lymph # (Auto) 0.58 L Absolute Neutrophils 12.70 H Anion Gap Creatinine Glucose 139 H Calcium 8.0 L Phosphorus Lactate Dehydrogenase Total Protein Albumin [place] 90205 H CSF Total Nucleated Auto 332 H CSF Neutrophils 8 H CSF Monocytes 14 L CSF Glucose 82 H CSF Total Protein 69.0 H 09/28/20 09/28/20 09/28/20 05:05 05:05 05:05 WBC RBC 3.73 L Hgb 11.0 L Hct 33.4 L MCH MCHC RDW Neut % (Auto) Lymph % (Auto) 11.8 L Lymph # (Auto) 0.97 L Absolute Neutrophils Anion Gap 6.0 L Creatinine 0.6 L 0.6 L Glucose 123 H 125 H Calcium 7.3 L 7.2 L Phosphorus 2.4 L Lactate Dehydrogenase 112 L Total Protein 4.6 L 4.6 L Albumin 2.4 L 2.4 L CSF RBC CSF Total Nucleated Auto CSF Neutrophils CSF Monocytes CSF Glucose CSF Total Protein 09/29/20 09/29/20 09/30/20 09:13 13:30 05:27 WBC RBC 3.47 L Hgb 11.9 L Hct 33.0 L MCH 34.3 H MCHC 36.1 H RDW 16.9 H Neut % (Auto) Lymph % (Auto) Lymph # (Auto) 1.36 L Absolute Neutrophils Anion Gap Creatinine Glucose 133 H Calcium 8.0 L 8.1 L Phosphorus Lactate Dehydrogenase 126 L Total Protein 5.4 L 5.3 L Albumin 3.0 L 2.8 L CSF RBC CSF Total Nucleated Auto CSF Neutrophils CSF Monocytes CSF Glucose CSF Total Protein 09/30/20 05:27 WBC RBC 3.99 L Hgb 11.8 L Hct 35.8 L MCH MCHC RDW Neut % (Auto) Lymph % (Auto) 12.4 L Lymph # (Auto) 0.91 L Absolute Neutrophils Anion Gap Creatinine Glucose Calcium Phosphorus Lactate Dehydrogenase Total Protein Albumin CSF RBC CSF Total Nucleated Auto CSF Neutrophils CSF Monocytes CSF Glucose CSF Total Protein Microbiology: Microbiology 09/29/20 09:13 Blood Blood Culture - Preliminary 09/29/20 02:55 Blood Blood Culture - Preliminary 09/27/20 02:43 Blood Blood Culture - Preliminary 09/27/20 13:15 Cerebral Spinal Fluid - Cerebral Spinal Fluid Gram Stain - Final 09/27/20 13:15 Cerebral Spinal Fluid - Cerebral Spinal Fluid CSF Culture - Final September 27 spinal fluid no growth. I have requested bio fire to be completed on this remaining spinal fluid. Herpes PCR 1 and 2 pending from spinal fluid yet. September 27 in September 29 blood cultures negative. White count today 7.3 with admit white count 13.5. September cell count 16,729 red cells 332 white cells 8% segs 78% lymphs 14% monos. A/P Assessment and plan (1) Meningitis: Status: Acute Comment: Devin is a pleasant 75-year-old man with a history of viral meningitis in April 2014. He is currently hospital day 4 with second episode of viral meningitis. Clinical presentation with CSF cell count consistent with viral meningitis. It is interesting that also is currently ill with pneumonia. This is supportive evidence for viral etiology. I would like to see discharge summary from [facility] to determine if he had diagnostic results from spinal fluid for herpes at that time. Herpes PCR is pending from this admission. He is currently on day 4 IV acyclovir. I would continue IV acyclovir until herpes PCR returns. I have reviewed with Dr. Sr who is also submitting a bio fire to [facility]. Bacterial culture is negative. (2) Delirium: Status: Acute Comment: Delirium has cleared. Time Spent With Patient Time: Total time spent is greater than 50% in coordination of care (as documented) at patient's floor/unit and/or counseling patient:
[2020-09-30] MEDS: ATORVASTATIN 10 MG TABLET PO SCH (21:32)
[2020-10-01] MEDS: 0.9 % SODIUM CHLORIDE 1,000 ML IV SCH ×3 (01:17→16:46)
[2020-10-01] MEDS: 0.9 % SODIUM CHLORIDE 10 ML SYRINGE IV SCH ×3 (05:00→20:13)
[2020-10-01] MEDS: SODIUM CHLORIDE 0.9% IV SCH (05:40)
[2020-10-01] MEDS: ACYCLOVIR SODIUM IV SCH (05:40)
[2020-10-01] MEDS: DOCUSATE SODIUM 100 MG CAPSULE PO SCH ×2 (08:23→20:13)
[2020-10-01 08:46] LABS: Basophils # (Auto) 0.02 K/mcL (0.00-0.20); Basophils % (Auto) 0.3 % (0.0-2.0); Eosinophils # (Auto) 0.06 K/mcL (0.00-0.70); Eosinophils % (Auto) 0.8 % (0.0-7.0); Hematocrit 35.1 % (41.0-55.0); Hemoglobin 11.7 g/dL (13.5-16.5); Lymphocytes # (Auto) 0.76 K/mcL (1.50-4.80); Lymphocytes % (Auto) 10.7 % (15.0-49.0); Mean Cell Volume 89.3 fL (80.0-100.0); Mean Corpuscular HGB Conc 33.3 g/dL (31.0-36.0); Mean Platelet Volume 9.2 fL (7.4-10.4); Monocytes # (Auto) 0.54 K/mcL (0.10-0.90); Monocytes % (Auto) 7.6 % (1.0-12.0); Neutrophils % (Auto) 80.6 % (38.0-78.0); Platelet Count 223 K/mcL (140-440); RBC 3.93 M/mcL (4.50-5.90); Red Cell Distribution Width 14.1 % (11.5-14.5); WBC 7.1 K/mcL (4.5-11.0)
[2020-10-01] MEDS: VITAMINS A C E ZINC COPPER PO SCH ×2 (09:56→20:13)
[2020-10-01 09:58] LABS: ALT/SGPT 12 U/L (<40); AST/SGOT 17 U/L (<40); Albumin 2.8 gm/dL (3.2-5.2); Albumin/Globulin Ratio 1.1 (1.0-2.3); Alkaline Phosphatase 68 U/L (39-117); Bilirubin,Direct < 0.2 mg/dL (0-0.3); Bilirubin,Total 0.5 mg/dL (0.1-1.0); Blood Urea Nitrogen 9 mg/dL (8-23); Calcium 8.1 mg/dL (8.6-10.4); Carbon Dioxide 24 mmol/L (22-30); Chloride 102 mmol/L (96-108); Globulin 2.6 gm/dL (2.2-3.7); Glomerular Filtration Rate 91; Glucose 92 mg/dL (70-105); Lactate Dehydrogenase 177 U/L (135-225); Phosphorous 2.5 mg/dL (2.5-4.5); Triglycerides 65 mg/dL (<150)
--- NOTE | 2020-10-01 10:55 | Internal Med Progress Note ---
SUBJECTIVE Subjective Patient information: Note initiated : 10/01/20 at 10:53 am Service Date, if different from initiated Date: [] Patient: Devin Barbour 75 y/o M admitted on 09/27/20 for AMS. Chief Complaint: [] Interval history: Mr. Barbour is a 75 year old M history of subdural hemorrhage and meningitis, found by family to have altered mental status, confusions, and agitations earlier previous evening. He was found to be mumbling in incompreh ensible words. He was just being brought to [facility] emergency room, where he was found to have a fever of 103. CT of the head without contrast was performed and no signs of acute stroke or any other acute intracranial pathologies were found. Labs including CBC were largely unremarkab le with absence of leukocytosis. Urine drug screen negative. Given clinical presentations and prior history of meningitis, and recurrent episodes of bacterial versus viral meningitis were suspected. Lumbar puncture was attempted but failed due to the fact that patient was very combative. Ativan and Haldol were given and without much success. Patient finally was being calmed down after ketamine being given. Admission request due to staffing issues. 09/28-patient clinically improved. Lumbar puncture consistent with mononuclear leukocytosis suggestive of aseptic meningitis. Continue acyclovir. DC ampicillin/vancomycin and steroid. Much more lucid alert and ambulating. Transfer to medical floor. Continue contact cautions. No overnight fever chills. Phosphorus 2.4 start replacement. 09/29-patient febrile last night. Intermittently confused but this morning a lot better. Await CSF test including encephalitis panel. Stable biochemical profile. Continue acyclovir. -09/30 patient doing a lot better. Lucid alert and ambulating. Encephalitis panel pending. Continue acyclovir. DC Rocephin as no fever or signs of bacterial meningitis. Low procalcitonin. Stable white count, renal function stable creatinine 0.7, no overnight fever chills or concerns per staff. Tolerating diet and therapies 10/01-HSV DNA PCR negative. Acyclovir discontinued. Continue supportive management. Patient feeling better. Anticipate discharge in 24 hours pending clinical improvement. No overnight fever chills or concerns per nursing staff. Stable hemodynamics and vitals and labs. Constitutional Vitals: Vital Signs Temp Pulse Resp BP Pulse Ox 97.3 F 71 18 137/67 97 10/01/20 08:00 10/01/20 08:00 10/01/20 08:00 10/01/20 08:00 10/01/20 08:00 Period Temp Pulse Resp BP Sys/Cassidy Pulse Ox Last 24 Hr 97.3 F-99.9 F 65-80 16-20 133-152/64-74 96-98 Intake and Output 09/30/20 10/01/20 10/01/20 21:59 05:59 13:59 Intake Total 1590 1400 150 Output Total 450 950 Balance 1140 450 150 Weight 79.197 kg Alert oriented Nonlabored breathing No anxiety Nondistended abdomen Intake & Output: Intake & Output 09/30/20 10/01/20 10/01/20 21:59 05:59 13:59 Intake Total 1590 1400 150 Output Total 450 950 Balance 1140 450 150 Weight 79.197 kg Intake: IV 1150 1150 150 Sodium Chloride 0.9% 1,000 ml @ 1000 1000 100 mls/hr IV .Q10H DANIEL Rx#: [id number] Zovirax 770 mg In Sodium 150 150 150 Chloride 0.9% 150 ml @ 150 mls/ hr IV Q8H DANIEL Rx#:[id number] Oral 440 250 Output: Urine Catheter Amount 225 Void Amount 450 725 Other: Meal Dinner Percent of Meal Consumed 100% Urine Appearance Clear Clear Urine Color Bright Yellow Pale OBJ DATA Labs CBC & Chem 7: 10/01/20 05:36 10/01/20 05:36 Labs: Abnormal Lab Results 10/01/20 10/01/20 09/30/20 05:36 05:36 05:27 RBC 3.93 L 3.99 L Hgb 11.7 L 11.8 L Hct 35.1 L 35.8 L MCH MCHC RDW Neut % (Auto) 80.6 H Lymph % (Auto) 10.7 L 12.4 L Lymph # (Auto) 0.76 L 0.91 L Glucose Calcium 8.1 L Lactate Dehydrogenase Total Protein 5.4 L Albumin 2.8 L 09/30/20 09/29/20 09/29/20 05:27 13:30 09:13 RBC 3.47 L Hgb 11.9 L Hct 33.0 L MCH 34.3 H MCHC 36.1 H RDW 16.9 H Neut % (Auto) Lymph % (Auto) Lymph # (Auto) 1.36 L Glucose 133 H Calcium 8.1 L 8.0 L Lactate Dehydrogenase 126 L Total Protein 5.3 L 5.4 L Albumin 2.8 L 3.0 L Meds: Medications Acetaminophen (Acetaminophen 325 Mg Tablet) 650 mg PO Q6HP PRN; Protocol PRN Reason: Per Pain Protocol/Fever > 101 Last Admin: 09/29/20 17:23 Dose: 650 mg Documented by: Atorvastatin Calcium (Atorvastatin 10 Mg Tablet) 10 mg PO HS [facility] Last Admin: 09/30/20 21:32 Dose: 10 mg Documented by: Docusate Sodium (Docusate Sodium 100 Mg Capsule) 100 mg PO BID [facility] Last Admin: 10/01/20 08:23 Dose: 100 mg Documented by: Haloperidol Lactate (Haloperidol Lactate 5 Mg/Ml Vial) 5 mg IM Q6HP PRN PRN Reason: Agitation Hydralazine HCl (Hydralazine 20 Mg/Ml Vial) 10 mg IV Q4-6HP PRN PRN Reason: Hypertension Sodium Chloride (Sodium Chloride 0.9%) 1,000 mls @ 100 mls/hr IV .Q10H [facility] Last Admin: 10/01/20 04:00 Dose: 100 mls/hr Documented by: Lactulose (Lactulose 20 Gm/30 Ml Oral.Tanja) 10 gm PO DAILYP PRN PRN Reason: Constipation Lorazepam (Lorazepam 2 Mg/Ml Vial) 1 mg IV Q2HP PRN PRN Reason: ANXIETY/SEDATION Ondansetron HCl (Ondansetron 4 Mg/2 Ml Vial) 4 mg IV Q4HP PRN; Protocol PRN Reason: Nausea And Vomiting Vitamins A,C,E-Zinc -Copper [ Preservision Areds] Cap 1 dose PO BID [facility] Last Admin: 10/01/20 09:56 Dose: Not Given Documented by: Potassium/Phosphorus/Sodium (Neutra Phos 1 Packet) 2 packet PO DAILY PRN PRN Reason: PHOS <2.5 Senna (Sennosides 1 Tablet) 2 tab PO HSP PRN PRN Reason: Constipation Sodium Chloride (0.9 % Sodium Chloride 10 Ml Syringe) 10 ml IV Q8 [facility] Last Admin: 10/01/20 05:00 Dose: 10 ml Documented by: A/P Narrative A/P Narrative: * Aseptic meningitis with 92% mononuclear cells on CSF, negative HSV PCR. DC acyclovir. Gritness PCR viral panel pending * History of HLD continue statin * Deconditioning/weakness continue therapies and nutrition interventions * Prophylaxis SCDs Plan * DC acyclovir * PT OT nutrition support * Discharge planning likely in 24 hours Time Spent With Patient Time: Total time spent is greater than 50% in coordination of care (as documented) at patient's floor/unit and/or counseling patient: QUALITY Stroke Symptom Onset Unknown: No VTE Deep Vein Thrombosis/Pulmonary Embolism Present on Admission: No
[2020-10-01] MEDS: ATORVASTATIN 10 MG TABLET PO SCH (20:13)
[2020-10-02] MEDS: 0.9 % SODIUM CHLORIDE 1,000 ML IV SCH ×4 (00:22→11:57)
[2020-10-02] MEDS: 0.9 % SODIUM CHLORIDE 10 ML SYRINGE IV SCH (05:46)
[2020-10-02] MEDS: VITAMINS A C E ZINC COPPER PO SCH (07:36)
[2020-10-02] MEDS: DOCUSATE SODIUM 100 MG CAPSULE PO SCH (08:09)
[2020-10-02 09:16] LABS: Basophils # (Auto) 0.03 K/mcL (0.00-0.20); Basophils % (Auto) 0.5 % (0.0-2.0); Eosinophils # (Auto) 0.05 K/mcL (0.00-0.70); Eosinophils % (Auto) 0.8 % (0.0-7.0); Hematocrit 34.6 % (41.0-55.0); Hemoglobin 11.7 g/dL (13.5-16.5); Lymphocytes # (Auto) 0.65 K/mcL (1.50-4.80); Lymphocytes % (Auto) 9.8 % (15.0-49.0); Mean Cell Volume 88.3 fL (80.0-100.0); Mean Corpuscular HGB Conc 33.8 g/dL (31.0-36.0); Mean Platelet Volume 9.5 fL (7.4-10.4); Monocytes # (Auto) 0.72 K/mcL (0.10-0.90); Monocytes % (Auto) 10.9 % (1.0-12.0); Platelet Count 212 K/mcL (140-440); RBC 3.92 M/mcL (4.50-5.90); Red Cell Distribution Width 14.2 % (11.5-14.5); WBC 6.6 K/mcL (4.5-11.0)
--- NOTE | 2020-10-02 12:00 | Internal Med Progress Note ---
SUBJECTIVE Subjective Patient information: Note initiated : 10/02/20 at 11:58 am Service Date, if different from initiated Date: [] Patient: Devin Barbour 75 y/o M admitted on 09/27/20 for AMS. Chief Complaint: [] Interval history: Mr. Barbour is a 75 year old M history of subdural hemorrhage and meningitis, found by family to have altered mental status, confusions, and agitations earlier previous evening. He was found to be mumbling in incompreh ensible words. He was just being brought to [facility] emergency room, where he was found to have a fever of 103. CT of the head without contrast was performed and no signs of acute stroke or any other acute intracranial pathologies were found. Labs including CBC were largely unremarkab le with absence of leukocytosis. Urine drug screen negative. Given clinical presentations and prior history of meningitis, and recurrent episodes of bacterial versus viral meningitis were suspected. Lumbar puncture was attempted but failed due to the fact that patient was very combative. Ativan and Haldol were given and without much success. Patient finally was being calmed down after ketamine being given. Admission request due to staffing issues. 09/28-patient clinically improved. Lumbar puncture consistent with mononuclear leukocytosis suggestive of aseptic meningitis. Continue acyclovir. DC ampicillin/vancomycin and steroid. Much more lucid alert and ambulating. Transfer to medical floor. Continue contact cautions. No overnight fever chills. Phosphorus 2.4 start replacement. 09/29-patient febrile last night. Intermittently confused but this morning a lot better. Await CSF test including encephalitis panel. Stable biochemical profile. Continue acyclovir. -09/30 patient doing a lot better. Lucid alert and ambulating. Encephalitis panel pending. Continue acyclovir. DC Rocephin as no fever or signs of bacterial meningitis. Low procalcitonin. Stable white count, renal function stable creatinine 0.7, no overnight fever chills or concerns per staff. Tolerating diet and therapies 10/01-HSV DNA PCR negative. Acyclovir discontinued. Continue supportive management. Patient feeling better. Anticipate discharge in 24 hours pending clinical improvement. No overnight fever chills or concerns per nursing staff. Stable hemodynamics and vitals and labs. 10/02-patient doing well. No overnight events. Normal labs and hemodynamics. Will possibly discharge on Sunday pending clinical improvement. Constitutional Vitals: Vital Signs Temp Pulse Resp BP Pulse Ox 98.4 F 75 16 124/70 96 10/02/20 11:26 10/02/20 11:26 10/02/20 11:26 10/02/20 11:26 10/02/20 11:26 Period Temp Pulse Resp BP Sys/Cassidy Pulse Ox Last 24 Hr 98.4 F-98.9 F 61-75 14-18 120-138/63-74 96-98 Intake and Output 10/01/20 10/02/20 10/02/20 21:59 05:59 13:59 Intake Total 1490 1000 1800 Output Total 938 019 2941 Balance 715 600 450 Weight 78.471 kg alert oriented Nonlabored breathing No headache No lymphedema Intake & Output: Intake & Output 10/01/20 10/02/20 10/02/20 21:59 05:59 13:59 Intake Total 1490 1000 1800 Output Total 719 169 8983 Balance 715 600 450 Weight 78.471 kg Intake: IV 6499 446 3451 Sodium Chloride 0.9% 1,000 ml @ 6447 385 3804 100 mls/hr IV .Q10H [facility] Rx#: [id number] Oral 490 120 800 Output: Void Amount 797 110 4679 Other: Urine Appearance Clear Clear Clear Urine Color Bright Yellow Bright Yellow Bright Yellow OBJ DATA Labs CBC & Chem 7: 10/02/20 05:43 10/01/20 05:36 Labs: Abnormal Lab Results 10/02/20 10/01/20 10/01/20 05:43 05:36 05:36 RBC 3.92 L 3.93 L Hgb 11.7 L 11.7 L Hct 34.6 L 35.1 L MCH MCHC RDW Neut % (Auto) 80.6 H Lymph % (Auto) 9.8 L 10.7 L Lymph # (Auto) 0.65 L 0.76 L Calcium 8.1 L Total Protein 5.4 L Albumin 2.8 L 09/30/20 09/30/20 09/29/20 05:27 05:27 13:30 RBC 3.99 L 3.47 L Hgb 11.8 L 11.9 L Hct 35.8 L 33.0 L MCH 34.3 H MCHC 36.1 H RDW 16.9 H Neut % (Auto) Lymph % (Auto) 12.4 L Lymph # (Auto) 0.91 L 1.36 L Calcium 8.1 L Total Protein 5.3 L Albumin 2.8 L Meds: Medications Acetaminophen (Acetaminophen 325 Mg Tablet) 650 mg PO Q6HP PRN; Protocol PRN Reason: Per Pain Protocol/Fever > 101 Last Admin: 09/29/20 17:23 Dose: 650 mg Documented by: Atorvastatin Calcium (Atorvastatin 10 Mg Tablet) 10 mg PO HS [facility] Last Admin: 10/01/20 20:13 Dose: 10 mg Documented by: Docusate Sodium (Docusate Sodium 100 Mg Capsule) 100 mg PO BID [facility] Last Admin: 10/02/20 08:09 Dose: Not Given Documented by: Haloperidol Lactate (Haloperidol Lactate 5 Mg/Ml Vial) 5 mg IM Q6HP PRN PRN Reason: Agitation Hydralazine HCl (Hydralazine 20 Mg/Ml Vial) 10 mg IV Q4-6HP PRN PRN Reason: Hypertension Sodium Chloride (Sodium Chloride 0.9%) 1,000 mls @ 100 mls/hr IV .Q10H [facility] Last Admin: 10/02/20 11:57 Dose: 100 mls/hr Documented by: Lactulose (Lactulose 20 Gm/30 Ml Oral.Tanja) 10 gm PO DAILYP PRN PRN Reason: Constipation Lorazepam (Lorazepam 2 Mg/Ml Vial) 1 mg IV Q2HP PRN PRN Reason: ANXIETY/SEDATION Ondansetron HCl (Ondansetron 4 Mg/2 Ml Vial) 4 mg IV Q4HP PRN; Protocol PRN Reason: Nausea And Vomiting Vitamins A,C,E-Zinc -Copper [ Preservision Areds] Cap 1 dose PO BID [facility] Last Admin: 10/02/20 07:36 Dose: Not Given Documented by: Potassium/Phosphorus/Sodium (Neutra Phos 1 Packet) 2 packet PO DAILY PRN PRN Reason: PHOS <2.5 Senna (Sennosides 1 Tablet) 2 tab PO HSP PRN PRN Reason: Constipation Sodium Chloride (0.9 % Sodium Chloride 10 Ml Syringe) 10 ml IV Q8 [facility] Last Admin: 10/02/20 05:46 Dose: Not Given Documented by: A/P Narrative A/P Narrative: * Aseptic meningitis with 92% mononuclear cells on CSF, negative HSV PCR. Off acyclovir. Bio fire PCR viral panel pending * History of HLD continue statin * Deconditioning/weakness continue therapies and nutrition interventions * Prophylaxis SCDs Plan * Continue supportive treatment * PT OT nutrition support Time Spent With Patient Time: Total time spent is greater than 50% in coordination of care (as documented) at patient's floor/unit and/or counseling patient: QUALITY Stroke Symptom Onset Unknown: No VTE Deep Vein Thrombosis/Pulmonary Embolism Present on Admission: No
--- NOTE | 2020-10-02 12:12 | Discharge Summary ---
Discharge Provider Provider Patient information: Note initiated : 10/02/20 at 12:10 pm Service Date, if different from initiated Date: [] Patient: Devin Barbour a 75 y/o M admitted on 09/27/20 for AMS. Discharge diagnosis * Aseptic meningitis with 92% mononuclear cells on CSF, negative HSV PCR. Off acyclovir. Easy Eye PCR viral panel pending. Patient feels a lot better and requesting discharge. Recommend follow-up with primary care physician 5 to 7 days. * History of HLD continue statin * Deconditioning/weakness management nutrition intervention/therapies. Doing a lot better. Feels at baseline brief hospital course Mr. Barbour is a 75 year old M history of subdural hemorrhage and meningitis, found by family to have altered mental status, confusions, and agitations earlier previous evening. He was found to be mumbling in incomprehensible words. He was just being brought to [facility] emergency room, where he was found to have a fever of 103. CT of the head without contrast was performed and no signs of acute stroke or any other acute intracranial pathologies were found. Labs including CBC were largely unremarkable with absence of leukocytosis. Urine drug screen negative. Given clinical presentations and prior history of meningitis, and recurrent episodes of bacterial versus viral meningitis were suspected. Lumbar puncture was attempted but failed due to the fact that patient was very combative. Ativan and Haldol were given and without much success. Patient finally was being calmed down after ketamine being given. Admission request due to staffing issues. 09/28-patient clinically improved. Lumbar puncture consistent with mononuclear leukocytosis suggestive of aseptic meningitis. Continue acyclovir. DC ampicillin/vancomycin and steroid. Much more lucid alert and ambulating. Transfer to medical floor. Continue contact cautions. No overnight fever chills. Phosphorus 2.4 start replacement. 5-patient febrile last night. Intermittently confused but this morning a lot better. Await CSF test including encephalitis panel. Stable biochemical profile. Continue acyclovir. -5 patient doing a lot better. Lucid alert and ambulating. Encephalitis panel pending. Continue acyclovir. DC Rocephin as no fever or signs of bacterial meningitis. Low procalcitonin. Stable white count, renal function stable creatinine 0.7, no overnight fever chills or concerns per staff. Tolerating diet and therapies 10/01-HSV DNA PCR negative. Acyclovir discontinued. Continue supportive management. Patient feeling better. Anticipate discharge in 24 hours pending clinical improvement. No overnight fever chills or concerns per nursing staff. Stable hemodynamics and vitals and labs. 10/02-patient doing well. No overnight events. Normal labs and hemodynamics. Patient and his currently in room and they feel that he is close to baseline and would like to be discharged today. Recommend follow-up with primary care physician in 5 to 7 days. Discharging home Date of admission: 09/27/20 01:55 Discharge date: 10/02/20 Primary care physician: Bert Chairez Consults: 09/30/20 17:24 Consult to Physician [CONS] Routine Comment: Consulting Provider: Favian Logan Reason For Exam: Physician to Consult Discharge Meds Discharge Medications Home Medications rosuvastatin 5 mg PO DAILY 09/27/20 [History Confirmed 09/27/20 Last Taken Unknown] PreserVision AREDS 1 cap PO BID 09/28/20 [History Confirmed 09/28/20 Last Taken 09/26/20 08:00] cholecalciferol (vitamin D3) 50 mcg PO QDAY 09/28/20 [History Confirmed 09/28/20 Last Taken 09/26/20 08:00] vitamin B complex [B Complex-Vitamin B12] 1 tab PO DAILY 09/28/20 [History Confirmed 09/28/20 Last Taken 09/26/20 08:00] acetaminophen [Tylenol] 650 mg PO Q6HP PRN #30 tab 10/02/20 [Rx Last Taken Unknown] COURSE Hospital Course Hospital course: . Discharge diagnosis: Aseptic meningitis Time Spent with Patient Time attestation: Total time spent providing and/or coordinating discharge services: EXAM Constitutional Vitals: Temp Pulse Resp BP Pulse Ox 98.4 F 75 16 124/70 96 10/02/20 11:26 10/02/20 11:26 10/02/20 11:26 10/02/20 11:26 10/02/20 11:26 Discharge Data Data Completed and Pending Labs on day of discharge: Labs from last 24 hours 10/02/20 09/27/20 05:43 13:19 WBC 6.6 RBC 3.92 L Hgb 11.7 L Hct 34.6 L MCV 88.3 MCH 29.8 MCHC 33.8 RDW 14.2 Plt Count 212 MPV 9.5 Neut % (Auto) 78.0 Lymph % (Auto) 9.8 L Payette % (Auto) 10.9 Eos % (Auto) 0.8 Baso % (Auto) 0.5 Lymph # (Auto) 0.65 L Payette # (Auto) 0.72 Eos # (Auto) 0.05 Baso # (Auto) 0.03 Absolute Neutrophils 5.15 Miscellaneous Test Cancelled Preliminary micro results at discharge 09/29/20 09:13 Blood Culture - Preliminary Blood 09/29/20 02:55 Blood Culture - Preliminary Blood Discharge Plan Patient/Caregiver Discharge Instructions Activity: increase activity as tolerated Diet: Regular Diet Activity Restrictions/Additional Instructions: Follow-up PCP in 5 to 7 days Return to ER if worsening headache fever chills Prescriptions: New acetaminophen [Tylenol] 325 mg Tablet 650 mg PO Q6HP PRN (Reason: Per Pain Protocol/Fever > 101) Qty: 30 RF: 0 Continued rosuvastatin 5 mg tablet 5 mg PO DAILY RF: 0 cholecalciferol (vitamin D3) 50 mcg (2,000 unit) Capsule 50 mcg PO QDAY RF: 0 vitamin B complex [B Complex-Vitamin B12] Tablet 1 tab PO DAILY RF: 0 PreserVision AREDS [id number] Capsule 1 cap PO BID RF: 0 Follow Up Plan Patient Disposition: Home, Self-Care Rehab Potential: Fair I certify that the patient requires SNF services: No Overall status at discharge: patient is progressing back to baseline Discharge Orders: Discharge Order (Routine); Ordered 10/02/20 Ordered By: Sergio ADEN VTE Deep Vein Thrombosis/Pulmonary Embolism Present on Admission: No
== END 2020-10-02 13:30 | disposition home or self-care (01) | DRG 98 ==
LOC: ICU 01:55 → MEDSUR 09-28 16:23
PROVIDERS: ADMIT Internal Medicine; ATTEND Internal Medicine

== ENCOUNTER 2024-05-09 22:26 | Inpatient (IN) ==
[2024-05-09] MEDS ORDERED: IOPAMIDOL 100 ML BOTTLE IV ONE (22:27)
[2024-05-09] MEDS: MIDAZOLAM 2 MG/2 ML VIAL IV ONE ×4 (22:50→23:57)
[2024-05-09] MEDS: HALOPERIDOL LACTATE 5 MG/ML VIAL IV ONE ×3 (22:57→23:50)
[2024-05-09 23:19] LABS: POC Calcium, Ionized 1.1 (1.16-1.32); POC Creatinine 1.1 (0.6-1.2); POC Potassium 3.6 (3.3-5.1)
[2024-05-09 23:39] LABS: Basophils # (Auto) 0.04 K/mcL (0.00-0.30); Basophils % (Auto) 0.6 % (0.0-2.0); Eosinophils % (Auto) 1.5 % (0.0-7.0); Hemoglobin 16.2 g/dL (13.7-17.5); Lymphocytes # (Auto) 1.32 K/mcL (1.50-4.80); Lymphocytes % (Auto) 19.3 % (15.5-49.0); Mean Cell Volume 89.9 fL (80.0-100.0); Mean Corpuscular HGB Conc 34.5 g/dL (31.0-36.0); Mean Platelet Volume 9.2 fL (8.8-12.5); Monocytes # (Auto) 0.54 K/mcL (0.10-0.90); Monocytes % (Auto) 7.9 % (1.0-12.0); Neutrophils % (Auto) 70.6 % (38.0-78.0); Platelet Count 171 K/mcL (140-440); RBC 5.23 M/mcL (4.63-6.08); Red Cell Distribution Width 13.3 % (11.5-14.5); WBC 6.8 K/mcL (4.5-11.0)
[2024-05-09] MEDS: MIDAZOLAM 2 MG/2 ML VIAL ONE ×3 (23:56)
[2024-05-09] MEDS: HALOPERIDOL LACTATE 5 MG/ML VIAL ONE (23:56)
[2024-05-10 00:06] LABS: ALT/SGPT 10 U/L (<40); AST/SGOT 23 U/L (<40); Albumin 4.4 gm/dL (3.2-5.2); Albumin/Globulin Ratio 2.2 (1.0-2.3); Alkaline Phosphatase 96 U/L (39-117); Bilirubin,Total 0.6 mg/dL (0.1-1.0); Blood Urea Nitrogen 15 mg/dL (8-23); Calcium 9.3 mg/dL (8.6-10.4); Carbon Dioxide 27 mmol/L (22-30); Chloride 101 mmol/L (96-108); Glomerular Filtration Rate 70; Glucose 138 mg/dL (70-105); Potassium 3.7 mmol/L (3.3-5.1); Sodium 140 mmol/L (133-145)
[2024-05-10 00:16] LABS: Prothrombin Time 13.7 sec (11.9-14.5)
[2024-05-10] MEDS: MIDAZOLAM 2 MG/2 ML VIAL IV ONE (01:20)
[2024-05-10 02:42] LABS: Appearance,Urine CLEAR (Clear); Bilirubin,Urine Negative (Negative); Color,Urine STRAW; Glucose,Urine (UA) Negative (Negative); Ketones,Urine Negative (Negative); Leukocyte Esterase,Urine Negative /uL (Negative); Nitrate,Urine Negative (Negative); Protein,Urine Negative (Negative); Specific Gravity,Urine 1.032 (1.000-1.035); Urine Blood Negative (Negative); Urine RBC 1 /hpf (0-3); Urine Squamous Epithelial Cell 0 /hpf (0-4); Urine WBC 1 /hpf (0-4); Urobilinogen,Urine Negative
[2024-05-10] MEDS: LORazepam 2 MG/ML VIAL IV ONE ×3 (03:27→11:34)
[2024-05-10] MEDS: ACETAMINOPHEN 1,000 MG/100 ML BAG IV ONE (03:40)
[2024-05-10] MEDS: 0.9 % SODIUM CHLORIDE 1,000 ML IV SCH (03:58)
[2024-05-10] MEDS ORDERED: SENNOSIDES 1 TABLET PO PRN (04:12)
[2024-05-10] MEDS ORDERED: ACETAMINOPHEN 1,000 MG/100 ML BAG IV PRN (04:12)
[2024-05-10] MEDS ORDERED: IPRATROPIUM/ALBUTEROL 3 ML AMPUL.NEB NEB PRN (04:12)
[2024-05-10] MEDS ORDERED: ONDANSETRON 4 MG/2 ML VIAL IV PRN (04:12)
[2024-05-10] MEDS: OLANZapine 10 MG VIAL IM SCH ×2 (04:34→04:39)
[2024-05-10] MEDS: cefTRIAXone 1 GM VIAL IV ONE (04:48)
[2024-05-10] MEDS: cefTRIAXone 1 GM VIAL ONE (04:49)
[2024-05-10 06:03] LABS: ALT/SGPT 8 U/L (<40); AST/SGOT 21 U/L (<40); Albumin/Globulin Ratio 2.5 (1.0-2.3); Alkaline Phosphatase 85 U/L (39-117); Bilirubin,Direct 0.2 mg/dL (<0.3); Bilirubin,Total 0.6 mg/dL (0.1-1.0); Blood Urea Nitrogen 13 mg/dL (8-23); Calcium 8.7 mg/dL (8.6-10.4); Carbon Dioxide 24 mmol/L (22-30); Chloride 100 mmol/L (96-108); Globulin 1.6 gm/dL (2.2-3.7); Glomerular Filtration Rate 84; Glucose 125 mg/dL (70-105); Lactate Dehydrogenase 200 U/L (135-225); Phosphorous 2.5 mg/dL (2.5-4.5); Potassium 3.8 mmol/L (3.3-5.1); Sodium 136 mmol/L (133-145); Triglycerides 193 mg/dL (<150); Uric Acid 3.6 mg/dL (2.5-8.0)
[2024-05-10] MEDS: 0.9 % SODIUM CHLORIDE 10 ML SYRINGE IV SCH (06:35)
[2024-05-10] MEDS: ALLOPURINOL 300 MG TABLET PO SCH ×2 (06:49→10:55)
[2024-05-10 07:08] LABS: Basophils # (Auto) 0.03 K/mcL (0.00-0.30); Basophils % (Auto) 0.3 % (0.0-2.0); Eosinophils # (Auto) 0.04 K/mcL (0.00-0.70); Eosinophils % (Auto) 0.4 % (0.0-7.0); Hematocrit 45.4 % (40.1-51.0); Hemoglobin 15.2 g/dL (13.7-17.5); Lymphocytes # (Auto) 0.87 K/mcL (1.50-4.80); Lymphocytes % (Auto) 9.2 % (15.5-49.0); Mean Cell Volume 93.4 fL (80.0-100.0); Mean Corpuscular HGB Conc 33.5 g/dL (31.0-36.0); Mean Platelet Volume 9.5 fL (8.8-12.5); Monocytes # (Auto) 0.57 K/mcL (0.10-0.90); Neutrophils % (Auto) 83.9 % (38.0-78.0); Platelet Count 137 K/mcL (140-440); RBC 4.86 M/mcL (4.63-6.08); Red Cell Distribution Width 13.3 % (11.5-14.5); WBC 9.5 K/mcL (4.5-11.0)
[2024-05-10] MEDS: DONEPEZIL 10 MG TABLET PO SCH (10:54)
[2024-05-10] MEDS: MULTIVIT,THER IRON,CA,FA & MIN 1 TABLET PO SCH (10:55)
[2024-05-10] MEDS: CYANOCOBALAMIN (VITAMIN B-12) 500 MCG TABLET PO SCH (10:55)
[2024-05-10] MEDS: HEPARIN 5,000 UNIT/ML VIAL SQ SCH (10:55)
[2024-05-10] MEDS: ASPIRIN 81 MG TAB.CHEW CHEWED ONE (16:29)
[2024-05-10] MEDS: ASPIRIN 81 MG TAB.CHEW ONE (16:35)
[2024-05-10 17:29] LABS: Free T4 (Free Thyroxine) 1.19 ng/dL (0.93-1.70); HDL Cholesterol 38 mg/dL (>40); LDL Cholesterol,Calculated 128 mg/dL (<100); Non-HDL Cholesterol 186 mg/dL (<130); Triglycerides 291 mg/dL (<150)
[2024-05-10 18:24] LABS: Thyroid Stimulating Hormone 2.86 uIU/mL (0.27-5.01)
[2024-05-10] MEDS: 0.9 % SODIUM CHLORIDE 500 ML IV ONE (21:52)
[2024-05-11 06:00] LABS: Basophils # (Auto) 0.02 K/mcL (0.00-0.30); Basophils % (Auto) 0.2 % (0.0-2.0); Eosinophils # (Auto) 0.07 K/mcL (0.00-0.70); Eosinophils % (Auto) 0.8 % (0.0-7.0); Hematocrit 46.7 % (40.1-51.0); Hemoglobin 15.5 g/dL (13.7-17.5); Lymphocytes # (Auto) 1.82 K/mcL (1.50-4.80); Lymphocytes % (Auto) 20.5 % (15.5-49.0); Mean Cell Volume 91.7 fL (80.0-100.0); Mean Corpuscular HGB Conc 33.2 g/dL (31.0-36.0); Mean Platelet Volume 9.1 fL (8.8-12.5); Monocytes % (Auto) 6.8 % (1.0-12.0); Neutrophils % (Auto) 71.6 % (38.0-78.0); Platelet Count 147 K/mcL (140-440); RBC 5.09 M/mcL (4.63-6.08); Red Cell Distribution Width 13.3 % (11.5-14.5); WBC 8.9 K/mcL (4.5-11.0)
[2024-05-11 06:43] LABS: ALT/SGPT 8 U/L (<40); AST/SGOT 23 U/L (<40); Albumin 4.1 gm/dL (3.2-5.2); Albumin/Globulin Ratio 2.2 (1.0-2.3); Alkaline Phosphatase 89 U/L (39-117); Bilirubin,Direct 0.4 mg/dL (<0.3); Bilirubin,Total 1.1 mg/dL (0.1-1.0); Blood Urea Nitrogen 13 mg/dL (8-23); Calcium 9.1 mg/dL (8.6-10.4); Carbon Dioxide 24 mmol/L (22-30); Chloride 103 mmol/L (96-108); Globulin 1.9 gm/dL (2.2-3.7); Glomerular Filtration Rate 80; Glucose 107 mg/dL (70-105); Lactate Dehydrogenase 160 U/L (135-225); Phosphorous 2.6 mg/dL (2.5-4.5); Potassium 4.1 mmol/L (3.3-5.1); Sodium 139 mmol/L (133-145); Triglycerides 136 mg/dL (<150); Uric Acid 4.5 mg/dL (2.5-8.0)
[2024-05-11] MEDS: ASPIRIN 81 MG TAB.CHEW CHEWED SCH (09:45)
[2024-05-11 12:21] LABS: Hemoglobin A1C 5.4 % Hgb (4.0-6.0)
[2024-05-11] MEDS ORDERED: ROSUVASTATIN 10 MG TABLET PO SCH (21:00)
[2024-05-11] MEDS: ZOLPIDEM 5 MG TABLET ONE (22:37)
[2024-05-11] MEDS: ZOLPIDEM 5 MG TABLET PO PRN (22:37)
[2024-05-12 06:29] LABS: Basophils # (Auto) 0.02 K/mcL (0.00-0.30); Basophils % (Auto) 0.6 % (0.0-2.0); Eosinophils # (Auto) 0.11 K/mcL (0.00-0.70); Eosinophils % (Auto) 3.1 % (0.0-7.0); Hemoglobin 14.3 g/dL (13.7-17.5); Lymphocytes # (Auto) 0.59 K/mcL (1.50-4.80); Lymphocytes % (Auto) 16.6 % (15.5-49.0); Mean Cell Volume 91.3 fL (80.0-100.0); Mean Platelet Volume 9.4 fL (8.8-12.5); Monocytes # (Auto) 0.42 K/mcL (0.10-0.90); Monocytes % (Auto) 11.8 % (1.0-12.0); Neutrophils % (Auto) 67.9 % (38.0-78.0); Platelet Count 135 K/mcL (140-440); Red Cell Distribution Width 13.3 % (11.5-14.5); WBC 3.6 K/mcL (4.5-11.0)
[2024-05-12 06:45] LABS: ALT/SGPT 7 U/L (<40); AST/SGOT 25 U/L (<40); Albumin 3.7 gm/dL (3.2-5.2); Albumin/Globulin Ratio 2.3 (1.0-2.3); Alkaline Phosphatase 74 U/L (39-117); Bilirubin,Direct < 0.2 mg/dL (0-0.3); Bilirubin,Total 0.6 mg/dL (0.1-1.0); Blood Urea Nitrogen 18 mg/dL (8-23); Calcium 8.7 mg/dL (8.6-10.4); Carbon Dioxide 24 mmol/L (22-30); Chloride 105 mmol/L (96-108); Globulin 1.6 gm/dL (2.2-3.7); Glomerular Filtration Rate 88; Glucose 104 mg/dL (70-105); Lactate Dehydrogenase 176 U/L (135-225); Phosphorous 3.1 mg/dL (2.5-4.5); Potassium 3.8 mmol/L (3.3-5.1); Sodium 140 mmol/L (133-145); Triglycerides 111 mg/dL (<150); Uric Acid 4.3 mg/dL (2.5-8.0)
[2024-05-12 16:04] VITALS: O2SAT 98
[2024-05-12 16:19] VITALS: TEMP 97.2
== END 2024-05-12 14:45 | disposition home health service (06) | DRG 65 ==
LOC: ED 22:26 → ICU 22:26
PROVIDERS: ADMIT Student in an Organized Health Care Education/Training Program; ATTEND Student in an Organized Health Care Education/Training Program